=== PATIENT | female | born 1965 | race Caucasian/White ===

== ENCOUNTER 2019-12-03 02:32 | Emergency (ER) | payer BC ==
[~2019-12-03] VITALS: Ht 162.6 cm; Wt 59.0 kg
[2019-12-03 02:38] VITALS: BP 107/71
[2019-12-03] MEDS ORDERED: TDAP [DIPH/PERTUSSIS/TET] 0.5 ML VIAL IM ONE ×2 (02:48→03:00)
== END 2019-12-03 03:14 | disposition home or self-care (01) ==
LOC: ER 02:35
DX: S01.21XA Laceration without foreign body of nose, initial encounter (principal); Z88.2 Allergy status to sulfonamides; W54.0XXA Bitten by dog, initial encounter; Y93.89 Activity, other specified; Y92.89 Other specified places as the place of occurrence of the external cause; Y99.8 Other external cause status
CPT/HCPCS: 90715